=== PATIENT | female | born 1945 | race Caucasian/White ===

== ENCOUNTER → 2019-10-25 | Outpatient (CLI) | payer MEDICARE, BC ==
--- NOTE | 2019-10-25 15:25 | RADIOLOGY REPORT (SQ) ---
EXAM DESCRIPTION: HIPS BILATERAL COMPLETED DATE/TIME: 10/25/2019 9:57 am REASON FOR STUDY: FALL SAME LEV FROM SLIP/TRIP W/O STRIKE AGAINST OBJECT, INIT,BILAT HIP PAIN W01.0X XA FALL SAME LEV FROM SLIP/TRIP W/O STRIKE AGAINST OBJ M25.552 PAIN IN LEFT HIP M25.551 PAIN IN RI GHT HIP COMPARISON: None. NUMBER OF VIEWS: Two views TECHNIQUE: AP pelvis and additional frog-leg view of both hips. LIMITATIONS: None. FINDINGS: MINERALIZATION: Normal. HIPS: No acute fracture or dislocation. No worrisome bone lesions. PELVIS AND SACRUM: No acute fracture or dislocation. No worrisome bone lesions. PUBIS AND ISCHIUM: No acute fracture. LOWER LUMBAR SPINE: No significant findings as visualized. SOFT TISSUES: No findings. OTHER: No other significant finding. IMPRESSION: NEGATIVE STUDY OF THE PELVIS AND HIPS. TECHNICAL DOCUMENTATION: JOB ID: [id number] [employer]- All Rights Reserved Reading location - IP/workstation name: [email or web address]
--- NOTE | 2019-10-25 15:26 | RADIOLOGY REPORT (SQ) ---
EXAM DESCRIPTION: LUMBAR SPINE COMPLETE COMPLETED DATE/TIME: 10/25/2019 9:57 am REASON FOR STUDY: FALL SAME LEV FROM SLIP/TRIP W/O STRIKE AGAINST OBJECT, INIT W01.0XXA FALL SAME L EV FROM SLIP/TRIP W/O STRIKE AGAINST OBJ M25.552 PAIN IN LEFT HIP M25.551 PAIN IN RIGHT HIP COMPARISON: None. NUMBER OF VIEWS: Five views including obliques. TECHNIQUE: AP, lateral, oblique, and sacral radiographic images acquired of the lumbar spine. LIMITATIONS: None. FINDINGS: MINERALIZATION: Normal. SEGMENTATION: Normal. No transitional anatomy. ALIGNMENT: Mild scoliosis, convex to the left. Grade 1 anterolisthesis of L3 on L4. VERTEBRAE: Anterior wedge deformity of the L1 vertebra. DISCS: Multilevel disc space narrowing with osteophytes. POSTERIOR ELEMENTS: Pedicles and facets are intact. No pars defect or posterior arch defects. Facet arthropathy is present. HARDWARE: None in the spine. PARASPINAL SOFT TISSUES: Normal. PELVIS: Intact as visualized. No fractures or worrisome bone lesions. SI joints intact. OTHER: No other significant finding. IMPRESSION: 1. ANTERIOR WEDGE DEFORMITY OF THE L1 VERTEBRA. AGE INDETERMINATE. IF THE PATIENT HAS SIGNIFICANT F OCAL SYMPTOMS, MAY CONSIDER FOLLOW-UP WITH CT OR MRI. 2. MULTILEVEL CHRONIC DEGENERATIVE CHANGES. TECHNICAL DOCUMENTATION: JOB ID: [id number]- All Rights Reserved Reading location - IP/workstation name: [email or web address]
== END ==
LOC: OD 09:20
PROVIDERS: ATTEND Physician Assistant
DX: M25.552 Pain in left hip (principal); M25.551 Pain in right hip; M54.5 Low back pain; M47.896 Other spondylosis, lumbar region; W01.0XXA Fall on same level from slipping, tripping and stumbling without subsequent striking against object, initial encounter
CPT/HCPCS: 72110; 73522

== ENCOUNTER → 2019-10-28 | Outpatient (CLI) | payer MEDICARE, BC ==
--- NOTE | 2019-10-28 11:31 | RADIOLOGY REPORT (SQ) ---
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 Images revi ewed with lung, soft tissue and bone windows. Reconstructed coronal and sagittal MPR images reviewed . All images stored on PACS. All CT scanners at this facility use dose modulation, iterative reconstruction, and/or weight based d osing when appropriate to reduce radiation dose to as low as reasonably achievable (ALARA). [facility]: Dose Right [facility]: CareDose [facility]: Dose Right [facility]: Teradose 4D [facility]: Smart indidebt RADIATION DOSE: CT Rad equipment meets quality standard of care and radiation dose reduction techniq ues were employed. CTDIvol: 11.9 mGy. DLP: 299 mGy-cm. mGy. LIMITATIONS: Lack of intrathecal contrast. FINDINGS: SEGMENTATION: Normal. No transitional anatomy. ALIGNMENT: Mild levoscoliosis. Mild anterolisthesis of L3 on L4. VERTEBRAL BODIES: Marked compression changes at L1 that do not appear to be acute. Inferior endplate Schmorl's node at L3. DISCS: Marked disc narrowing at L3-4. Mild disc narrowing at L5-S1. Mild central canal stenosis at L3-4 secondary to the anterolisthesis and to facet hypertrophy on the right. Broad-based disc bulge at L5-S1 with mild central canal stenosis. PEDICLES, TRANSVERSE PROCESSES: No fractures. No dislocation. No acute findings. FACETS, POSTERIOR ELEMENTS: Hypertrophic facet changes from L3-S1. HARDWARE: None in the spine. VISUALIZED RIBS: No fractures. SOFT TISSUES: No significant or acute finding in adjacent soft tissues. OTHER: No other significant finding. IMPRESSION: 1. Compression changes at L1 with retropulsion of bone into the spinal canal resulting in mild central canal stenosis. This does not appear to be acute. 2. Disc changes as described. There is mild central canal stenosis at L3-4 and at L5-S1. 3. Facet arthropathy. TECHNICAL DOCUMENTATION: JOB ID: [id number] Quality ID # [id number]: Final reports with documentation of one or more dose reduction techniques (e.g., Au tomated exposure control, adjustment of the mA and/or kV according to patient size, use of iterative reconstruction technique) 2010 [employer]- All Rights Reserved Reading location - IP/workstation name: [email or web address]
== END ==
LOC: RAD 09:14
PROVIDERS: ATTEND Physician Assistant
DX: M43.9 Deforming dorsopathy, unspecified (principal); M54.5 Low back pain
CPT/HCPCS: 72131